=== PATIENT | female | born 1955 | race Caucasian/White ===

== ENCOUNTER → 2017-11-15 08:30 | Outpatient (CLI) | payer SELFPAY ==
--- NOTE | 2017-11-15 08:47 | ECHOD_ITS ---
Reason For Study: Altered mental status Procedure This was a 2D Doppler, Color Flow transthoracic echocardiogram. The exam was of fair technical quality due to diminished acoustic windows. The study was technically difficult. Exam performed in department. Left Ventricle Normal LV size. Left ventricular systolic function is normal. The estimated ejection fraction is 60 %. There is evidence of diastolic dysfunction. No regional wall motion abnormalities noted. Right Ventricle Normal RV size. Normal systolic function. Atria Normal left atrium. Normal right atrium. No doppler evidence for ASD. Mitral Valve There is no mitral annular calcification. Normal mitral valve. Mild (1+) mitral valve insufficiency. Tricuspid Valve Normal tricuspid valve. Trivial tricuspid valve insufficiency. Right ventricular systolic pressure estimated to be 28 mmHg. Aortic Valve Trisinus/trileaflet aortic valve. Normal aortic valve. Pulmonic Valve The pulmonic valve is not well visualized. Great Vessels Normal sized aortic root. Pericardium/Pleural No pericardial effusion. MMode/2D Measurements & Calculations LVIDd: 4.0 cm IVSd: 1.2 cm Ao root diam: 3.2 cm LVIDs: 2.3 cm LVPWd: 1.3 cm LA dimension: 3.3 cm RVDd: 2.9 cm FS: 42.9 % LAV(MOD-bp): 39.0 ml LA A4 area: 12.0 cm2 RA A4 area: 9.4 cm2 LAV(MOD-bp) Indexed: 22.7 ml/m2 LAV(MOD-sp2): 39.0 ml LAV(MOD-sp4): 31.9 ml Doppler Measurements & Calculations MV E max pedro: 71.8 cm/sec Lat Peak E' Pedro: 3.7 cm/sec Med Peak E' Pedro: 4.6 cm/sec MV A max pedro: 104.7 cm/sec E/E' lat: 19.4 E/E' med: 15.7 MV E/A: 0.69 Ao V2 max: 146.0 cm/sec LV V1 max: 120.0 cm/sec PA V2 max: 99.9 cm/sec Ao max P.5 mmHg LV V1 max P.8 mmHg TR max pedro: 248.8 cm/sec TR max P.8 mmHg Interpretation Summary The study was technically difficult. Left ventricular systolic function is normal. The estimated ejection fraction is 60 %. Mild (1+) mitral valve insufficiency. Trivial tricuspid valve insufficiency. Right ventricular systolic pressure estimated to be 28 mmHg. There is evidence of diastolic dysfunction. Ordering Physician: Whitney Chung Referring Physician: Whitney Chung Performed By: Kimberly Landon, MARIA LUISACS, RVT
--- NOTE | 2017-11-15 10:00 | MRI_ITS ---
STUDY: MRI BRAIN WITHOUT CONTRAST REASON FOR EXAM: Female, 62 years old. One episode 7 weeks ago in which patient had confusion and memory loss. TECHNIQUE: Standardized multiplanar fat and water weighted pulse sequences were obtained. COMPARISON: None. FINDINGS: Normal size of the ventricles and extra-axial spaces for the patient's age. Normal white matter tracts of the supratentorial brain. Normal bilateral basal ganglia. Normal thalami. There is no extra-axial fluid accumulation. Normal flow voids within the major intracranial circulation suggesting patency by spin echo criteria. Normal sella turcica, pituitary gland, infundibular stalk, optic chiasm and hypothalamus. Normal tectal plate and pineal gland. Normal midbrain, nena and medulla. Normal cerebellum. Normal basal cisterns. Normal bilateral temporal bones. Normal bilateral internal auditory canals. No demonstrated orbital abnormality, within the constraints of a routine brain study. Normal visualized paranasal sinuses. Normal calvarium and skull base. Normal visualized soft tissue structures. Normal visualized upper cervical spine. MRI/Brain without Contrast IMPRESSION: Normal unenhanced MRI of the brain. Electronically Signed: Tamir Jensen MD at 9:01 EDT Tel , Service support ,
--- NOTE | 2017-11-15 10:37 | CDUL_ITS ---
Reason For Study: altered mental status Rt. Velocities/BP Lt. Velocities/BP Prox CCA 96.7/21.1 cm/sec. Prox CCA 101/24.6 cm/sec. Mid CCA 100/20.5 cm/sec. Mid CCA 103/29.3 cm/sec. Dist CCA 107/26.4 cm/sec. Dist CCA 94.4/21.1 cm/sec. Prox ICA 69.2/17.0 cm/sec. Prox ICA 63.3/21.1 cm/sec. Mid ICA 89.4/29.2 cm/sec. Mid ICA 54.5/22.3 cm/sec. Dist ICA 60.6/23.8 cm/sec. Dist ICA 93.7/35.4 cm/sec. Rt. ICA/CCA = .9. Lt. ICA/CCA = .9. Prox ECA 76.2/12.3 cm/sec. Prox ECA 67.4/15.8 cm/sec. Rt. Vert. 62.1/20.5 cm/sec. Lt. Vert. 59.8/18.8 cm/sec. Right Extracranial There is intimal thickening but no significant atherosclerotic plaque noted in the right common carotid artery. There is intimal thickening but no significant atherosclerotic plaque noted in the right internal carotid artery. The right internal carotid artery is very tortuous. There is intimal thickening but no significant atherosclerotic plaque noted in the right external carotid artery. Antegrade flow is noted in the right vertebral artery. Left Extracranial There is intimal thickening but no significant atherosclerotic plaque noted in the left common carotid artery. There is intimal thickening but no significant atherosclerotic plaque noted in the left internal carotid artery. The left internal carotid artery is very tortuous. There is intimal thickening but no significant atherosclerotic plaque noted in the left external carotid artery. Antegrade flow is noted in the left vertebral artery. Procedure Carotid Duplex [id number]. The exam was diagnostic. Exam performed in department. Interpretation Summary No significant atherosclerotic plaque or stenosis noted in the internal carotid arteries bilaterally. Flow within the vertebral arteries is antegrade bilaterally. Ordering Physician: Whitney Chung Performed By: Remberto Bloom RVT
== END ==
PROVIDERS: Family Provider Internal Medicine; PCP Internal Medicine; Visit Provider Internal Medicine
DX: R41.82 Altered mental status, unspecified (principal)
CPT/HCPCS: 70551; 93306; 93882